=== PATIENT | female | born 1970 | race Caucasian/White ===

== ENCOUNTER 2024-12-14 21:10 | Observation (INO) | payer OTHER, SELFPAY ==
[2024-12-14] VITALS (10 sets, daily range): BP systolic 125–220; BP diastolic 74–113; BMI 30.1; BMI 33.9
[2024-12-14 15:56] LABS: % Basophils 0.5 % (0-2); % Eosinophils 1.3 % (0-6); % Immature Granulocytes 0.3 % (0-0.5); % Lymphocytes 36.1 % (20.5-51.1); % Monocytes 3.8 % (1.7-9.3); Absolute Basophils 0.1 10^3/uL (0-0.2); Absolute Eosinophils 0.1 10^3/uL (0-0.7); Absolute Lymphocytes 3.3 10^3/uL (1.2-3.4); Absolute Monocytes 0.4 10^3/uL (0.1-0.6); Absolute Neutrophils 5.4 10^3/uL (1.4-6.5); Hemoglobin 13.6 g/dL (12.0-16.0); Mean Corp Hgb Conc. 33.2 g/dL (33.0-37.0); Mean Corpuscular Hgb 31.2 pg (27.0-31.0); Mean Platelet Volume 10.2 fL (7.4-10.4); Nucleated Red Blood Cells % 0 %; Platelet Count 229 10^3/uL (130-400); Red Blood Cell Count 4.36 10^6/uL (4.20-5.40); Red Cell Dist. Width 13.2 % (11.5-14.5); White Blood Cell Count 9.3 10^3/uL (4.8-10.8)
[2024-12-14 16:10] LABS: ALT (SGPT) 37 U/L (0-35); AST (SGOT) 36 U/L (14-36); Albumin 4.3 g/dl (3.5-5.0); Alkaline Phosphatase 87 U/L (38-126); Blood Urea Nitrogen 8 mg/dl (7-17); Calcium 9.4 mg/dl (8.4-10.2); Carbon Dioxide 27 mmol/L (22-30); Chloride 103 mmol/L (98-107); Glucose 96 mg/dl (70-99); Potassium 3.7 mmol/L (3.5-5.1); Sodium 139 mmol/L (135-145); Total Bilirubin 0.3 mg/dl (0.2-1.3); Total Protein 6.6 g/dl (6.3-8.2); eGFR > 60.00
--- NOTE | 2024-12-14 17:39 | ED.GENMED ---
History of Present Illness
<Annamaria White, LEAD RAMP AGENT - Last Filed: 12/14/24 21:19>
General
Chief Complaint: Visual Problem
Source: patient
Exam Limitations: none
Time Seen by Provider: 12/14/24 17:39
Nursing documentation reviewed up to this point in time: agreed with
History of Present Illness
History of Present Illness:
54 yo female w h/o HTN, Lisinopril 40 mg , Metoprolol 50 mg, does not take it as ordered. Started taking it again 3 days ago, took them today at 1 p.m. took double Lisinopril (80 mg).
Has not been taking BP meds regularly for 'years' only takes it if she feels her blood pressure is high, gets mild headache and eyes pressure,
Because 3 days ago she was not able to see clearly for 3 minutes, 'all distorted and I felt like my eyes were playing tricks on me and I was dizzy and lightheaded.'
Then today similar episodes, 'it happened twice' lasting about 20 seconds each time.
Denies n/v/ denies CP,SOB.
Had URI last week.
Past History
<Annamaria White, LEAD RAMP AGENT - Last Filed: 12/14/24 21:19>
Past History
ED Past Medical History: HTN
ED Past Surgical History: Cholecystectomy and Other (breast reduction)
Patient has exhibited threatening behavior?: No
PSI?: No
Social History
Tobacco: Smoker
Alcohol: None
Personal: Single
Living: with family
Employment: Employed ([employer])
Review of Systems
<Annamaria White LEAD RAMP AGENT - Last Filed: 12/14/24 21:19>
Review of Systems
Allergies reviewed?: Yes
All Other Systems: ROS reviewed and negative except as documented in HPI and ROS
Constitutional: Denies fever or fatigue
EENT: Reports other (vision is 'back to normal' 'but if I look around quickly I get a little dizzy')
Respiratory: Denies trouble breathing
Cardiac: Denies chest pain
ABD/GI: Denies abdominal pain, nausea or vomiting
: Denies dysuria, frequency or difficulty voiding
Musculoskeletal: Reports no symptoms; Denies edema
Skin: Reports no symptoms
Neurological: Reports headache (frontal left and center forehead 3/10); Denies dizzy, weakness or numbness
Phy Exam
<Annamaria White, LEAD RAMP AGENT - Last Filed: 12/14/24 21:19>
Physical Exam
Physical Exam:
GENERAL: No acute distress. A&Ox3.
CONSTITUTIONAL: Afebrile.
EYES: clear, conjunctivae normal
ENMT: moist mucus membranes, Pharynx nl
RESPIRATORY: Regular respirations, nonlabored, lungs clear.
CARDIOVASCULAR: Regular rate and rhythm, no murmurs, no rubs.
GI: Soft, nontender, normal BS
MUSCULOSKELETAL: Moves with ease. Well perfused.
SKIN: Warm, dry, pink
PSYCH: Normal mood and affect. Well kept, interactive and appropriate
NEUROLOGIC: Awake, alert and oriented. Speech clear. Cranial nerves II through XII intact. No focal neurological deficits. Ambulates well with steady gait
Course
<Annamaria White, LEAD RAMP AGENT - Last Filed: 12/14/24 21:19>
Orders/Labs/Results
Orders:
Orders
12/14/24 15:37
CT Head W/o Iv Contrast Urgent
Comment:
Reason For Exam: intermit blurry vision since Saturday
12/14/24 15:44
Complete Blood Count/With Diff Urgent
Comprehensive Metabolic Panel Urgent
12/14/24 17:48
HydrALAZINE [Apresoline] 50 mg PO NOW STA
12/14/24 18:44
Metoprolol [Lopressor] 50 mg PO NOW STA
12/14/24 19:30
Aspirin 325 mg PO NOW STA
12/14/24 19:42
Metoprolol [Lopressor] 5 mg IV NOW STA
12/14/24 20:26
Admit/Transfer Patient As Directed
Co-Sign Provider:
Level of Care: Inpatient admission
Assign to:: Telemetry
Physician / Group: cristiano
Diagnosis: tia, hypertensive urgency
Reason for Telemetry: CVA/TIA
Date to Stop Telemetry: 12/17/24
Time to Stop Telemetry: 11:00
Reason for Hospitalization: tia
Expected length of stay greater than two midnights?: Yes
ELOS- Estimated Length of Stay in days: 2
I certify the patient meets the requirements for IP care: Yes
PRN Pain Medication Management As Directed
May give lesser potent ordered pain med per pt: Yes
preference::
Protocol:: Medication orders for pain may be administered in a
manner that supports deferring to patient preference
when the pt is:
- Requesting an ordered lesser potent pain medication.
Least to most potent pain medications are defined
as: acetaminophen < NSAID < tramadol < opioids
(morphine, oxycodone, hydromorphone).
- Requesting a lesser dose of the same medication IF
ORDERED.
- Requesting a less intrusive route of administration
if both routes are prescribed by the provider (PO <
IV).
12/14/24 20:27
Code Status As Directed
Resuscitation Status: Full Code
12/17/24 11:00
DC Protocol for Telemetry ONCE
Abnormal Lab Results
12/14/24
15:44
MCH 31.2 H pg
(27.0-31.0)
ALT 37 H U/L
(0-35)
12/14/24 15:44
12/14/24 15:44
Vital Signs
Initial and Last Documented VS:
Initial Vital Signs
Temp Pulse Resp BP Pulse Ox
98.0 F 91 16 210/110 98
12/14/24 15:35 12/14/24 15:35 12/14/24 15:35 12/14/24 15:35 12/14/24 15:35
Last Documented Vital Signs
Temp Pulse Resp BP Pulse Ox
98.0 F 63 16 178/87 98
12/14/24 15:35 12/14/24 20:14 12/14/24 15:35 12/14/24 20:14 12/14/24 15:35
<Alem Woods MD - Last Filed: 12/14/24 19:44>
Orders/Labs/Results
Orders:
Orders
12/14/24 15:37
CT Head W/o Iv Contrast Urgent
Comment:
Reason For Exam: intermit blurry vision since Saturday
12/14/24 15:44
Complete Blood Count/With Diff Urgent
Comprehensive Metabolic Panel Urgent
12/14/24 17:48
HydrALAZINE [Apresoline] 50 mg PO NOW STA
12/14/24 18:44
Metoprolol [Lopressor] 50 mg PO NOW STA
12/14/24 19:30
Aspirin 325 mg PO NOW STA
12/14/24 19:42
Metoprolol [Lopressor] 5 mg IV NOW STA
12/14/24 20:26
Admit/Transfer Patient As Directed
Co-Sign Provider:
Level of Care: Inpatient admission
Assign to:: Telemetry
Physician / Group: cristiano
Diagnosis: tia, hypertensive urgency
Reason for Telemetry: CVA/TIA
Date to Stop Telemetry: 12/17/24
Time to Stop Telemetry: 11:00
Reason for Hospitalization: tia
Expected length of stay greater than two midnights?: Yes
ELOS- Estimated Length of Stay in days: 2
I certify the patient meets the requirements for IP care: Yes
PRN Pain Medication Management As Directed
May give lesser potent ordered pain med per pt: Yes
preference::
Protocol:: Medication orders for pain may be administered in a
manner that supports deferring to patient preference
when the pt is:
- Requesting an ordered lesser potent pain medication.
Least to most potent pain medications are defined
as: acetaminophen < NSAID < tramadol < opioids
(morphine, oxycodone, hydromorphone).
- Requesting a lesser dose of the same medication IF
ORDERED.
- Requesting a less intrusive route of administration
if both routes are prescribed by the provider (PO <
IV).
12/14/24 20:27
Code Status As Directed
Resuscitation Status: Full Code
12/17/24 11:00
DC Protocol for Telemetry ONCE
Abnormal Lab Results
12/14/24
15:44
MCH 31.2 H pg
(27.0-31.0)
ALT 37 H U/L
(0-35)
12/14/24 15:44
12/14/24 15:44
Vital Signs
Initial and Last Documented VS:
Initial Vital Signs
Temp Pulse Resp BP Pulse Ox
98.0 F 91 16 210/110 98
12/14/24 15:35 12/14/24 15:35 12/14/24 15:35 12/14/24 15:35 12/14/24 15:35
Last Documented Vital Signs
Temp Pulse Resp BP Pulse Ox
98.0 F 63 16 178/87 98
12/14/24 15:35 12/14/24 20:14 12/14/24 15:35 12/14/24 20:14 12/14/24 15:35
<Annamaria JonnieLeif White LEAD RAMP AGENT - Last Filed: 12/14/24 21:19>
MDM/Problems Addressed
Differential Diagnosis Includes:
hypertensive urgency/emergency
MDM/Problems Addressed:
54 yo female w h/o HTN, Lisinopril 40 mg , Metoprolol 50 mg, does not take it as ordered. Started taking it again 3 days ago, took them today at 1 p.m. took double Lisinopril (80 mg).
Has not been taking BP meds regularly for 'years' only takes it if she feels her blood pressure is high, gets mild headache and eyes pressure,
Because 3 days ago she was not able to see clearly for 3 minutes, 'all distorted and I felt like my eyes were playing tricks on me and I was dizzy and lightheaded.'
Then today similar episodes, 'it happened twice' lasting about 20 seconds each time.
Denies n/v/ denies CP,SOB.
Had URI last week.
CBC unremarkable
CMP unremarkable
5:45 p.m.
BP now 197/113
Pt asymptomatic
Will give dose Hydralazine and recheck.
Had tele med appointment last week. Has BP cuff at home.
Instructed to check her blood pressure daily and document it and discuss it with her PCP in 1 to 2 weeks. Instructed her to religiously take her blood pressure medications.
6:46 p.m.
BP rechecked, one hour after Hydralazine, 220/111. Pt now confesses, she did NOT take her Metoprolol today after initially saying she did
Given Metoprolol now and will recheck BP
Has had no further visual episodes
7:27 p.m.
BP remains high 221/112
Pt now tells me her right hand 'goes numb' intermittently past 2 months.
Case discussed with Dr. Woods who is in with pt and will assume care from this point
Plan: Admit for TIA workup
Pt went outside and had a cigarette after notified of need for admission.
<Annamaria White LEAD RAMP AGENT - Last Filed: 12/14/24 21:19>
*Critical Care Note
Total Time (30-74mins, 75-104mins- exclusive of procedures): Not Applicable
ED Attending Note
<Annamaria White NP - Last Filed: 12/14/24 21:19>
-
Portions of this chart may have been created with voice recognition software.� Occasional wrong word or��sound alike� substitutions may have occurred due to the inherent limitations of voice recognition software.
<Alem Woods MD - Last Filed: 12/14/24 19:44>
ED Attending Note
Patient seen and examined by attending physician: Yes
I performed the substantive portion of visit, reviewed & personally made and approve the management plan that is documented in note by myself or WESTLEY.: Yes
ED Attending Note:
54-year-old female presents emergency department with markedly elevated blood pressure. She states that she typically will notice when her blood pressure goes up because she gets a headache and her eyes feel 'bulgy'. 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
driving she had an episode with change in vision where she describes not being able to see straight lasting 1 to 3 minutes and then going away. Today, she had similar events x 2 while at work. Her blood pressure was noted to be elevated which
prompted her visit here. Patient is intermittently compliant with her medications for blood pressure. She denies chest pain or pressure, dyspnea, abdominal pain, vomiting, focal weakness. She does note intermittent numbness in the right hand,
most recently today but not currently. On exam, gait normal, motor 5 out of 5, sensory intact, cranial nerves II through XII intact. Given elevated blood pressure here and intermittent neurological symptoms patient will be admitted for BP control
and TIA workup. Aspirin ordered.
Discharge Plan
Departure
Patient Disposition: Admit
Date of Disposition: 12/14/24
Time of Disposition: 19:30
Presentation/result/management discussed w/ accepting MD/DO: Hospitalist
Condition: Fair
Discharge Problem:
Hypertensive urgency
Interventions
Interventions:
*Risk Screen - Suicide Last Done: 12/14/24 15:35
*General Assessment Last Done: 12/14/24 19:49
*Neglect/Abuse Screening Last Done: 12/14/24 15:35
ED- Fall Risk Assessment Last Done: 12/14/24 19:49
*ED COVID-19 Vaccine History Last Done: 12/14/24 19:49
ED- Neurological Assessment Last Done: 12/14/24 19:49
ED-EENT Assessment Last Done: 12/14/24 20:04
ED Swallowing Screen Last Done: 12/14/24 19:49
[2024-12-14] MEDS: APRESOLINE 50 MG PO (17:53)
[2024-12-14] MEDS: LOPRESSOR 50 MG PO (18:49)
[2024-12-14] MEDS: ASPIRIN 325 MG PO (20:06)
[2024-12-14] MEDS: LOPRESSOR 5 MG IV (20:14)
--- NOTE | 2024-12-14 20:30 | HPS.HSE ---
Family Physician
-
Family Physician: Artur Live
Chief Complaint
-
vision issues, tingling
History of Present Illness
54-year-old female past medical history of hypertension, chronic degenerative disc disease, presenting for not being able to see clearly 3 days ago. This lasted for 3 minutes. She felt like her eyes were playing tricks on her and she was dizzy and
lightheaded. This again happened for 20 seconds twice a today. Denies nausea or vomiting or chest pain or shortness of breath. She did have a headache earlier. She also did have numbness and tingling of the right hand earlier.
She had an episode 6 months ago where she had left eye vision loss which did not last too long.
She denies any symptoms currently.
She has a history of hypertension has not been taking blood pressure medications for years and only takes her blood pressure medicine and her blood pressure is high or when she gets headache and eye pressure. Her blood pressure is normally around
160 systolic even on a good day.
She had a URI last week with cough and congestion which is improving.
She smokes half a pack of cigarettes per day. Denies alcohol. Denies drugs.
He has history of heart attacks and strokes on both sides of her family.
Medical History
Past Medical History
Past Medical History: Reports Other ( hypertension, chronic degenerative disc disease)
Past Surgical History: Reports None
Social History
Tobacco: Smoker
Alcohol: None
Drug: None
Family History
Family History: Not pertinent
Allergies / Home Medications
Allergies reflects when Allergies were last updated in [facility].
Home Medications with original date entered in [facility]
Allergy/Medication List:
Allergies
Allergy/AdvReac Type Severity Reaction Status Date / Time
No Known Allergies Allergy Verified 12/14/24 15:37
Home Medications
carisoprodol 350 mg tablet 350 mg PO QID 12/14/24
hydrocodone 10 mg-acetaminophen 325 mg tablet 1 tab PO Q6H 12/14/24
ibuprofen 200 mg tablet 800 mg PO DAILYPRN PRN mild pain/headache 12/14/24
lisinopril 40 mg tablet 40 mg PO DAILYPRN PRN high BP 12/14/24
metoprolol succinate 100 mg tablet,extended release 24 hr 50 mg PO DAILYPRN PRN high BP 12/14/24
Review of Systems
-
History Source: Patient
A 12 point ROS was completed and negative except as noted: Yes
Constitutional: Reports No Symptoms
EENT: Reports See HPI
Respiratory: Reports No Symptoms
Cardiac: Reports No Symptoms
Abdomen/GI: Reports No Symptoms
: Reports No Symptoms
Musculoskeletal: Reports No Symptoms
Skin: Reports No Symptoms
Neurological: Reports See HPI
Endocrine: Reports No Symptoms
Hematologic/Lymphatic: Reports No Symptoms
Psych: Reports No Symptoms
Physical Exam
Vital Signs
Vital Signs
Temp Pulse Resp BP Pulse Ox
98.0 F 63 16 178/87 98
12/14/24 15:35 12/14/24 20:14 12/14/24 15:35 12/14/24 20:14 12/14/24 15:35
Physical Exam
General: Well Developed, Well Nourished and No Apparent Distress
HEENT: NormoCephalic, Moist mucous membranes and Atraumatic
Respiratory: Clear
Cardiac: S1/S2 and Regular Rhythm; No Murmur or Rub
GI: Soft, Non Tender, Non Distended and Normal Bowel Sounds; No Organomegaly
Rectal: Deferred by Provider
Musculoskeletal: No Clubbing, No Cyanosis and No Edema
Skin: No Rash
Neuro: Nonfocal/grossly intact
Laboratory Results
-
12/14/24 15:44
12/14/24 15:44
Laboratory Results
Total Bilirubin 0.3 mg/dl (0.2-1.3) 12/14/24 15:44
AST 36 U/L (14-36) 12/14/24 15:44
ALT 37 U/L (0-35) H 12/14/24 15:44
Alkaline Phosphatase 87 U/L (38-126) 12/14/24 15:44
Data Reviewed
-
Lab Data: Labs Reviewed by me
Old Records: Reviewed
Impression/Plan
-
IMPRESSION:
PLAN:
# Hypertensive urgency secondary to medication noncompliance
# Possible TIA vs neurological symptoms from hypertension
# History of hypertension
-Blood pressure 200s
-EKG shows normal sinus rhythm,
-Metoprolol, hydralazine given
-Continue lisinopril 40 mg, metoprolol 50 mg daily which is her normal medications
-Continue as needed hydralazine
-Aspirin 325 mg given, continue daily
-Check MRI brain to rule out CVA given frequent neurological symptoms
-Check A1c and lipid panel
-She was not compliant with statin due to muscle cramps, restart atorvastatin 40 mg
# Recent URI
-Improving
#Smoker
-Nicotine patch
Chronic degenerative disc disease
-Continue carisoprodol, Vicodin, ibuprofen
Full code
DVT prophylaxis�SCDs
Regular diet
--- NOTE | 2024-12-14 22:30 | PTCARENOTE ---
Patient arrives from ED. Patient ambulated independently into room. vitals obtained, patient assessed (see flowsheets). Patient oriented to room, call millard within reach. NIH 0. No complaints of headache or blurry vision at this time.
[2024-12-14] MEDS: SOMA 350 MG PO (23:43)
[2024-12-14] MEDS: NORCO 5/325 2 TABLET PO (23:43)
[2024-12-15 03:31] VITALS: BP 154/80
[2024-12-15] MEDS: NORCO 5/325 2 TABLET PO ×2 (06:12→13:06)
[2024-12-15 07:37] VITALS: BP 154/85
[2024-12-15 07:44] LABS: % Basophils 0.6 % (0-2); % Eosinophils 2.4 % (0-6); % Immature Granulocytes 0.3 % (0-0.5); % Lymphocytes 46.4 % (20.5-51.1); % Monocytes 4.8 % (1.7-9.3); % Neutrophils 45.5 % (42.2-75.2); Absolute Eosinophils 0.2 10^3/uL (0-0.7); Absolute Lymphocytes 3.3 10^3/uL (1.2-3.4); Absolute Monocytes 0.3 10^3/uL (0.1-0.6); Absolute Neutrophils 3.2 10^3/uL (1.4-6.5); Hematocrit 38.1 % (37.0-47.0); Hemoglobin 12.4 g/dL (12.0-16.0); Mean Corp Hgb Conc. 32.5 g/dL (33.0-37.0); Mean Corpuscular Hgb 31.1 pg (27.0-31.0); Mean Corpuscular Volume 95.5 fL (81.0-99.0); Nucleated Red Blood Cells % 0 %; Platelet Count 193 10^3/uL (130-400); Red Blood Cell Count 3.99 10^6/uL (4.20-5.40); Red Cell Dist. Width 13.5 % (11.5-14.5); White Blood Cell Count 7.1 10^3/uL (4.8-10.8)
[2024-12-15 08:32] LABS: ALT (SGPT) 36 U/L (0-35); AST (SGOT) 33 U/L (14-36); Albumin 3.7 g/dl (3.5-5.0); Alkaline Phosphatase 88 U/L (38-126); Blood Urea Nitrogen 8 mg/dl (7-17); Calcium 8.9 mg/dl (8.4-10.2); Carbon Dioxide 23 mmol/L (22-30); Chloride 105 mmol/L (98-107); Estimated Creatinine Clearance 97 ml/min; Glucose 107 mg/dl (70-99); HDL Cholesterol 41 mg/dl; LDL Cholesterol, Calculated 141 mg/dl; Potassium 3.4 mmol/L (3.5-5.1); Sodium 137 mmol/L (135-145); Total Bilirubin 0.4 mg/dl (0.2-1.3); Total Cholesterol 233 mg/dl (50-199); Total Protein 5.9 g/dl (6.3-8.2); Triglyceride 255 mg/dl (10-149); Very Low Density Lipoprotein 51 mg/dl (0-30); eGFR > 60.00
[2024-12-15] MEDS: NICODERM TRANSDERMAL 14 MG TRANSDERM (08:33)
[2024-12-15] MEDS: SOMA 350 MG PO ×2 (08:33→13:06)
[2024-12-15] MEDS: LOW STRENGTH ASPIRIN 81 MG PO (08:33)
--- NOTE | 2024-12-15 09:14 | W.PN.HOSP.TC ---
Addendum entered and electronically signed by Fadi Qiu MD 12/15/24 14:23:
MR Brain-No evidence of acute intracranial abnormality.
NIHSS 0
Denies any complaints of headache, vision problems, numbing or tingling.
d/w MRI results with patient. Eager to go home. Verbalized understanding with compliant with blood pressure medication moving forward once again
Recommended ophthalmology follow-up as with uncontrolled hypertension and tobacco abuse. Currently without any vision difficulty.
Patient states has new refills for lisinopril. Will prescribe Toprol.
More than 30 minutes spent in discharge including
Final examination of the patient
Summarizing hospital stay
Instructions for continuing care to all relevant caregivers
Preparation of discharge records, prescriptions, and referral forms
Total time spent (in minutes): 55
Original Note:
Today's Communication/Plan
-
await MRI brain
monitor BP
replete kcl
Assessment / Plan
Assessment / Plan
# Hypertensive urgency secondary to medication noncompliance
# Possible TIA vs neurological symptoms from hypertension
# History of hypertension
-Blood pressure 220s
-EKG shows normal sinus rhythm,
-Metoprolol, hydralazine given
-Continue lisinopril 40 mg standing. Restart Toprol.
-Continue as needed hydralazine
-Aspirin 325 mg given, continue daily till MRI results
-Check MRI brain to rule out CVA given frequent neurological symptoms
-a1c 5.7.
-She was not compliant with statin due to muscle cramps, restart atorvastatin 40 mg
-BP improving
-counseled on compliance with medication as high risk of stroke, cardiac event with non compliance with BP medication and tobacco abuse. Pt verbalized understanding.
-NIHSS 0
#HLD
elevated cholesterol and TG
Cont statin
# Recent URI
-Improving
#Daily tobacco abuse
-Nicotine patch
-counseled on completed cessation. Pt verbalized understanding.
Hypokalemia
replete/monitor
Chronic degenerative disc disease
-Continue carisoprodol, Vicodin, ibuprofen
Full code
DVT prophylaxis�SCDs
Regular diet
Anticipated Discharge: Today
Subjective/Interval History
-
Date of Service: December 15, 2024
denies any headache or vision problems or numbing or tingling in hands
Objective Data
-
Labs:
Laboratory Results
12/15/24
06:47
WBC 7.1
Hgb 12.4
Hct 38.1
Plt Count 193
Sodium 137
Potassium 3.4 L
Chloride 105
Carbon Dioxide 23
BUN 8
Creatinine 0.7
Glucose 107 H
Calcium 8.9
Total Bilirubin 0.4
AST 33
ALT 36 H
Alkaline Phosphatase 88
Vital Signs:
Vital Signs
Temp Pulse Resp BP Pulse Ox
97.8 F 58 16 154/85 97
12/15/24 07:37 12/15/24 07:37 12/15/24 07:37 12/15/24 07:37 12/15/24 07:37
I&O
12/14/24 12/15/24 12/16/24
06:59 06:59 06:59
Intake Total 480 / 480
Balance 480 / 480
Physical Exam
-
General: Well Developed, No Apparent Distress and Appears Chronically Ill
HEENT: Normocephalic, Atraumatic and Moist Mucous Membranes
Respiratory: Clear to Auscultation
Cardiac: Regular Rhythm and S1/S2; Negative Murmur, Rub or Gallop
GI: Soft, Nontender, Nondistended and Normal Bowel Sounds; Negative Organomegaly
Rectal: Deferred by Provider
Musculoskeletal: No Clubbing, No Cyanosis and No Edema
Skin: Negative Rash
Neuro: Awake, Alert, Oriented, AO x 3, No Motor Deficits, Nonfocal/Grossly Intact and No Sensory Deficits; Negative Tremors, Slurred Speech or Facial Droop
Psych: Calm
Data Reviewed
-
Total Time Spent with Patient (in minutes): 55
[2024-12-15 09:39] LABS: Glycohemoglobin (HgbA1c) 5.7 % (4.0-5.6)
[2024-12-15] MEDS: KCL 20 MEQ PO (10:04)
[2024-12-15 11:16] VITALS: BP 161/83
--- NOTE | 2024-12-15 11:54 | CM ---
Addendum entered by Theodora Alejo RN 12/15/24 15:15:
Per patient, either father or daughter will provide transportation home.
Original Note:
Reviewed the chart notes and spoke with the patient at the bedside. The patient resides with her father in a two story home with one step to enter. The patient reports no DME/SNF in the past, but had VN in past. The patient confirmed her pharmacy
of choice is the [facility] and PCP is Artur Live. CM continues to be available to patient/family and is monitoring medical plan for needs at discharge.
Plan: Discharge to home when medically stable. No needs identified at this time.
[2024-12-15] MEDS: TOPROL XL 50 MG PO (14:05)
--- NOTE | 2024-12-15 14:13 | W.DCSUMMARY ---
Discharge Summary
Discharge Data
Date of Admission: 12/14/24
Date of Discharge: 12/15/24
-
Pending Results: No
Hospital Course
54-year-old female past medical history of tobacco abuse, chronic degenerative disc disease,, hypertension noncompliant with medication who is presenting from home with complaints of vision problems and lightheadedness. Patient had a headache
earlier prior to hospitalization which has resolved. Was also complaining of numbing and tingling in the right hand which has resolved. Patient upon admission was found to be systolic blood pressure of 220s. She has a history of hypertension has
not been taking blood pressure medications for years and only takes her blood pressure medicine and her blood pressure is high or when she gets headache and eye pressure. Her blood pressure is normally around 160 systolic even on a good day.
Continues to smoke on a daily basis. CT head on admission was negative for acute pathology. Patient was restarted on her home medication lisinopril and metoprolol. Patient also received IV medication admission. Patient blood pressure and
downtrended. Patient symptomology of headache vision problems numbing tingling all resolved. MRI of the brain was negative for acute stroke. 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
times. Patient was counseled multiple times about compliance with blood pressure medications. Patient was recommended follow-up outpatient with ophthalmology. Patient NIH stroke scale was 0. Patient be discharged home.
Discharge Plan
-
Patient Disposition: Home (Routine Discharge)
Discharge Diagnosis/Procedures: Primary hypertension/hypertension emergency
Hyperlipidemia
Tobacco abuse
Condition: Fair
Diet: Low Cholesterol
Activity: With assistance and As tolerated
Driving Restrictions: As prior to admission
Instructions: Quitting smoking for adults, BLOOD PRESSURE
Referrals:
Evert Garcia MD [Active] - None (Recommend to follow-up with ophthalmology.)
Artur Live MD [Family Provider] - in less than 1 week
Prescriptions:
New
atorvastatin 40 mg Tablet
40 mg PO QPM 30 Days Qty: 30 0RF
metoprolol succinate 50 mg Tablet Extended Release 24 Hr
50 mg PO DAILY 30 Days Qty: 30 0RF
Continued
carisoprodol 350 mg Tablet
350 mg PO QID
hydrocodone-acetaminophen 10-325 mg Tablet
1 tab PO Q6H
Changed
lisinopril 40 mg Tablet
40 mg PO DAILY Qty: 0 0RF
Patient Comments:
12/14/24: Supposed to take routinely, but patient has only taken PRN.
Discontinued
ibuprofen 200 mg Tablet
800 mg PO DAILYPRN PRN (Reason: mild pain/headache)
metoprolol succinate 100 mg Tablet Extended Release 24 Hr
50 mg PO DAILYPRN PRN (Reason: high BP)
Patient Comments:
12/14/24: Supposed to take routinely, but patient has only taken PRN.
Discharge Orders:
Discharge Patient (As Directed); Ordered 12/15/24
Ordered By: Fadi Qiu
Discharge Date and Time
Print Language: LIBYAN
[2024-12-15] MEDS: AFLURIA (36 mos+) 2024-2025 FORMULA 0.5 ML IM (14:40)
[2024-12-15 14:57] VITALS: BP 169/83
== END 2024-12-15 16:01 | disposition home or self-care (01) ==
LOC: 1 ACUTE 21:10
PROVIDERS: ADMITTING PHYSICIAN Hospitalist; ATTENDING PHYSICIAN Hospitalist; EMERGENCY PHYSICIAN Emergency Medicine; FAMILY PHYSICIAN Internal Medicine
DX: I16.1 Hypertensive emergency (principal); H53.8 Other visual disturbances; R42 Dizziness and giddiness; I10 Essential (primary) hypertension; T46.4X6A Underdosing of angiotensin-converting-enzyme inhibitors, initial encounter; T44.7X6A Underdosing of beta-adrenoreceptor antagonists, initial encounter; Z91.128 Patient's intentional underdosing of medication regimen for other reason; Y92.9 Unspecified place or not applicable; E87.6 Hypokalemia; E78.5 Hyperlipidemia, unspecified; F17.210 Nicotine dependence, cigarettes, uncomplicated; Z90.49 Acquired absence of other specified parts of digestive tract; Z82.3 Family history of stroke; Z82.49 Family history of ischemic heart disease and other diseases of the circulatory system; Z23 Encounter for immunization
CPT/HCPCS: 70450; 70551; 80053; 80061; 83036; 85025; 90686; 96374; 99285; G0008; G0378